=== PATIENT | female | born 1960 | race Caucasian/White ===

== ENCOUNTER 2016-07-10 11:09 | Emergency (ER) | payer BC ==
[2016-07-10 11:16] VITALS: BP 119/60
--- NOTE | 2016-07-10 11:55 | UC ---
Skin Complaint HPI - HPI Summary HPI Summary: The patient comes in today for: 1. Facial rash: Onset: Last night. Palliative/provocative: Quality: Itching, not painful, but "sore." Region: Face, cheeks, and the forehead. Severity: 3/10 Time: Constant. Associated symptoms: Event: No exposure to any irritating substances to the face. * - History of Current Complaint Chief Complaint: UCSkin Time Seen by Provider: 07/10/16 11:42 Stated Complaint: ALLERGIC REACTION Hx Obtained From: Patient Hx Last Menstrual Period: 2 weeks ago - Allergy/Home Medications Allergies/Adverse Reactions: Allergies Allergy/AdvReac Type Severity Reaction Status Date / Time Bee Venom Allergy Severe Swelling Verified 03/17/15 07:48 Of Face,Lips,& Throat Tetracyclines Allergy Severe Swelling Verified 03/17/15 07:48 Of Face,Lips,& Throat Ampicillin Allergy Unknown Unknown Verified 03/17/15 07:48 Reaction Details Penicillins Allergy Unknown Unknown Verified 03/17/15 07:48 Reaction Details Review of Systems Constitutional: Negative Skin: Rash Eyes: Negative ENT: Negative Respiratory: Negative Cardiovascular: Negative Gastrointestinal: Negative Genitourinary: Negative All Other Systems Reviewed And Are Negative: Yes PMH/Surg Hx/FS Hx/Imm Hx Previously Healthy: No - Family planning/BCP Other History Of: Negative For: HIV, Hepatitis B, Hepatitis C, Anticoagulant Therapy - Surgical History Surgical History: Yes Surgery Procedure, Year, and Place: "GERD surgery, basically they were fixing a hernia" - Family History Known Family History: Negative: Cardiac Disease, Hypertension - Social History Occupation: Employed Full-time Alcohol Use: None Substance Use Type: None Smoking Status (MU): Former Smoker - Immunization History Vaccination Up to Date: Yes Physical Exam Triage Information Reviewed: Yes Appearance: Well-Appearing, No Pain Distress, Well-Nourished Vital Signs: Initial Vital Signs Temp 98.2 F 07/10/16 11:15 Pulse 74 07/10/16 11:15 Resp 16 07/10/16 11:15 BP 119/60 07/10/16 11:15 Pulse Ox 100 07/10/16 11:15 Vital Signs Reviewed: Yes Eyes: Positive: Conjunctiva Clear. Negative: Discharge ENT: Positive: Hearing grossly normal. Negative: Pharyngeal erythema, Nasal congestion, TM bulging, TM dull, TM red, Tonsillar swelling, Tonsillar exudate Dental: Negative: Gross Decay/Caries @, Dental Fracture @ Neck: Positive: Supple, Nontender, No Lymphadenopathy. Negative: Nuchal Rigidity Respiratory: Positive: Lungs clear, No respiratory distress, No accessory muscle use. Negative: Crackles, Wheezing Cardiovascular: Positive: RRR, No Murmur Abdomen Description: Positive: Nontender, No Organomegaly, Soft. Negative: Distended, Guarding Musculoskeletal: Positive: Strength Intact, ROM Intact, No Edema Neurological: Positive: Alert, Muscle Tone Normal Psychological: Positive: Age Appropriate Behavior, Consolable Skin: Positive: rashes - She had a slight erythematous, papular/macular rash of the face (forehead, cheeks, chin and long the mandible bilatearlly. There was not rash around the eyes. Course/Dx - Course Course Of Treatment: Patent told that her appearance and history suggest ot me that she has a contact dermatitis and suggested that she try a steroid cream. She is to see her primary care provider later next week. - Differential Diagnoses - Skin Complaint Differential Diagnoses: Contact Dermatitis, Other - Rosaecea. - Diagnoses Provider Diagnoses: Contact dermatitis Discharge - Discharge Plan Condition: Stable Disposition: HOME Patient Education Materials: Contact Dermatitis (ED) Additional Instructions: Please see your primary care provider later next week to see how well you are doing. If you don't do well, you may need to be treated for rosacea. IF you are not able to be seen timely by your primary care provider later next week, please come back to see us.
== END 2016-07-10 12:24 | disposition home or self-care (01) ==
LOC: UCEAST 11:09
DX: L25.9 Unspecified contact dermatitis, unspecified cause (principal); L71.9 Rosacea, unspecified; Z87.891 Personal history of nicotine dependence
CPT/HCPCS: 99212; G0463

== ENCOUNTER 2017-10-04 15:20 | Emergency (ER) | payer BC ==
[2017-10-04 15:33] VITALS: BP 108/69
--- NOTE | 2017-10-04 16:06 | UC ---
Hand/Wrist HPI - HPI Summary HPI Summary: WOKE UP THIS MORNING WITH PAIN AND SWELLING LEFT WRIST DORSAL SURFACE. PAIN WITH MOVEMENT OF FINGERS AND WRIST. 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 SO HAS REPETITIVE MOTION BUT DENIES ANY DISCRETE TRAUMA. - History Of Current Complaint Chief Complaint: UCUpperExtremity Stated Complaint: HAND SWELLING Time Seen by Provider: 10/04/17 15:54 Hx Obtained From: Patient Hx Last Menstrual Period: 2 weeks ago Onset/Duration: Sudden Onset, Lasting Hours, Still Present Severity Initially: Moderate Severity Currently: Moderate Pain Intensity: 6 Pain Scale Used: 0-10 Numeric Character Of Pain: Aching Aggravating Factor(s): Movement Alleviating Factor(s): Rest Associated Signs And Symptoms: Positive: Swelling Related History: Dominant Hand Right - Allergies/Home Medications Allergies/Adverse Reactions: Allergies Allergy/AdvReac Type Severity Reaction Status Date / Time ampicillin Allergy Unknown Verified 10/04/17 15:34 Reaction Details bee venom protein (honey bee) Allergy Swelling Verified 10/04/17 15:34 Of Face,Lips,& Throat Penicillins Allergy Unknown Verified 10/04/17 15:34 Reaction Details Tetracyclines Allergy Swelling Verified 10/04/17 15:34 Of Face,Lips,& Throat Home Medications: Home Medications Pantoprazole TAB (NF) [Protonix TAB (NF)] 1 tab PO DAILY 10/04/17 [History Confirmed 10/04/17] PMH/Surg Hx/FS Hx/Imm Hx GI/ History: Ulcer Other History Of: Negative For: HIV, Hepatitis B, Hepatitis C, Anticoagulant Therapy - Surgical History Surgical History: Yes Surgery Procedure, Year, and Place: "GERD surgery, basically they were fixing a hernia" - Family History Known Family History: Negative: Cardiac Disease, Hypertension - Social History Alcohol Use: Occasionally Substance Use Type: None Smoking Status (MU): Former Smoker - Immunization History Vaccination Up to Date: Yes Review of Systems Constitutional: Negative Skin: Negative Respiratory: Negative Cardiovascular: Negative Gastrointestinal: Negative Musculoskeletal: Arthralgia, Decreased ROM, Edema All Other Systems Reviewed And Are Negative: Yes Physical Exam Triage Information Reviewed: Yes Appearance: Well-Appearing, No Pain Distress, Well-Nourished Vital Signs: Initial Vital Signs Temp 98.3 F 10/04/17 15:28 Pulse 85 10/04/17 15:28 Resp 18 08/29/18 15:28 BP 108/69 10/04/17 15:28 Pulse Ox 100 10/04/17 15:28 Vital Signs Reviewed: Yes Eyes: Positive: Conjunctiva Clear ENT: Positive: Hearing grossly normal Neck: Positive: Supple Respiratory: Positive: No respiratory distress, No accessory muscle use Cardiovascular: Positive: Pulses Normal Abdomen Description: Positive: Soft Musculoskeletal: Positive: ROM Limited @ - LEFT WRIST, Edema @ - LEFT WRIST DORSALLY, Other: - TTP LEFT DORSAL WRIST Neurological: Positive: Alert Psychological: Positive: Age Appropriate Behavior Skin: Negative: rashes Diagnostics - Radiology LEFT WRIST XRAY Xray Interpretation: Positive (See Comments) - Mild nonfocal soft tissue edema. Radiology Interpretation Completed By: Radiologist - EKG Cardiac Rhythm: Junctional: Normal Hand/Wrist Course/Dx - Course Course Of Treatment: XRAY NEGATIVE FOR FRACTURE. CONSIDER CONTUSION VS. SPRAIN VS. OVERUSE INJURY. FEELS BETTER WITH SPLINT. WEAR SPLINT AT NIGHT AND DURING THE DAY ABLE. REST, ICE, COMPRESS, ELEVATE. NOTE FOR WORK PROVIDED. F/U ORTHO IF NOT IMPROVING. TYLENOL #3 FOR PAIN. - Differential Dx/Diagnosis Provider Diagnoses: LEFT WRIST INJURY/SWELLING Discharge - Sign-Out/Discharge Documenting (check all that apply): Patient Departure All imaging exams completed and their final reports reviewed: Yes - Discharge Plan Condition: Stable Disposition: HOME Prescriptions: Acetaminop/Codeine 30 MG TAB* [Tylenol/Codeine 30 MG TAB*] 1 - 2 tab PO Q6H PRN #20 tab MDD 8 PRN Reason: Pain Patient Education Materials: Contusion in Adults (ED), Wrist Sprain (ED) Referrals: Seven Crenshaw MD [Medical Doctor] - 1 Week Page Manriquez MD [Primary Care Provider] - If Needed Additional Instructions: XRAY TODAY NEGATIVE FOR FRACTURE OR DISLOCATION BUT SHOWS SOFT TISSUE SWELLING. MAY BE DUE TO REPETITIVE MOTION/OVERUSE. RECOMMEND REST, ICE, COMPRESSION, ELEVATION. WEAR THE SPLINT AT NIGHT AND DURING THE DAY ABLE. FOLLOW-UP WITH ORTHO NEXT WEEK IF YOU ARE NOT IMPROVING. - Billing Disposition and Condition Condition: STABLE Disposition: Home
--- NOTE | 2017-10-04 16:29 | RAD ---
INDICATION: Dorsal LEFT wrist pain and swelling for one day without proceeding injury. Pain distal radius/scaphoid region. COMPARISON: No relevant prior exams available on the [facility] [place] PACS for comparison. TECHNIQUE: AP, lateral, and oblique views LEFT wrist. REPORT: Normal articular alignment. No significant arthropathic change evident. Suggestion of a normal variant os styloideum likely at the third carpometacarpal articulation based on the lateral view. Negative for fracture. Mild nonfocal soft tissue edema. IMPRESSION: #. Mild nonfocal soft tissue edema. #. No radiographic evidence for fracture or significant arthropathic change.
== END 2017-10-04 17:05 | disposition home or self-care (01) ==
LOC: UCEAST 15:20
DX: S69.92XA Unspecified injury of left wrist, hand and finger(s), initial encounter (principal); M25.432 Effusion, left wrist; Z88.0 Allergy status to penicillin; Z91.030 Bee allergy status; Z88.1 Allergy status to other antibiotic agents; Z87.891 Personal history of nicotine dependence; X58.XXXA Exposure to other specified factors, initial encounter; Y92.9 Unspecified place or not applicable
CPT/HCPCS: 99213; G0463

== ENCOUNTER 2018-02-16 07:15 | Emergency (ER) | payer BC, OTHER ==
[2018-02-16 07:27] VITALS: BP 125/72
[2018-02-16] MEDS ORDERED: Acetaminophen TAB* 325 MG PO ONE (07:40)
--- NOTE | 2018-02-16 07:41 | UC ---
Head Injury HPI - HPI Summary HPI Summary: The patient is a 57-year-old female that slipped and fell on an icy sidewalk this morning walking her dog. She struck the back of her head. She denies any loss of consciousness. According to her daughter she has been perseverating. He has nausea. She has mild occipital headache. She has moderate midline neck pain. Patient was placed in a Aaliyah collar upon arrival here. He complains of some mild right elbow pain. - History Of Current Complaint Chief Complaint: UCHeadInjury Stated Complaint: HEAD INJURY Time Seen by Provider: 02/16/18 07:21 Hx Obtained From: Patient Hx Last Menstrual Period: 2 weeks ago Onset/Duration: Sudden Onset Severity Currently: Moderate Severity Initially: Moderate Pain Intensity: 6 Pain Scale Used: 0-10 Numeric Character: Dull Aggravating Factor(s): Nothing Alleviating Factor(s): Nothing Associated Signs And Symptoms: Positive: Confusion, Neck Pain, Nausea. Negative : LOC (Time In Secs./Mins/Hrs), LOC Duration Unknown, Epistaxis, Dental Malocclusion, Vomiting Head: 1 - tender/skin intact 2 - pain - Allergies/Home Medications Allergies/Adverse Reactions: Allergies Allergy/AdvReac Type Severity Reaction Status Date / Time ampicillin Allergy Unknown Verified 02/16/18 07:27 Reaction Details bee venom protein (honey bee) Allergy Swelling Verified 02/16/18 07:27 Of Face,Lips,& Throat Penicillins Allergy Unknown Verified 02/16/18 07:27 Reaction Details Tetracyclines Allergy Swelling Verified 02/16/18 07:27 Of Face,Lips,& Throat PMH/Surg Hx/FS Hx/Imm Hx Previously Healthy: Yes GI/ History: Gastroesophageal Reflux, Ulcer - perforated Other History Of: Negative For: HIV, Hepatitis B, Hepatitis C, Anticoagulant Therapy - Surgical History Surgical History: Yes Surgery Procedure, Year, and Place: "GERD surgery, basically they were fixing a hernia" - Family History Known Family History: Negative: Cardiac Disease, Hypertension - Social History Alcohol Use: Weekly Substance Use Type: None Smoking Status (MU): Former Smoker - Immunization History Vaccination Up to Date: Yes Review of Systems All Other Systems Reviewed And Are Negative: Yes Constitutional: Positive: Negative Skin: Positive: Negative Eyes: Positive: Negative ENT: Positive: Negative Respiratory: Positive: Negative Cardiovascular: Positive: Negative Gastrointestinal: Positive: Negative Genitourinary: Positive: Negative Motor: Positive: Negative Neurovascular: Positive: Negative Musculoskeletal: Positive: Arthralgia - neck pain/right elbow pain Neurological: Positive: Headache Psychological: Positive: Negative Physical Exam Triage Information Reviewed: Yes Appearance: Well-Appearing, No Pain Distress, Well-Nourished Vital Signs: Initial Vital Signs Temp 97.6 F 02/16/18 07:22 Pulse 67 02/16/18 07:22 Resp 18 02/16/18 07:22 BP 125/72 02/16/18 07:22 Pulse Ox 99 02/16/18 07:22 Vital Signs Reviewed: Yes Eyes: Positive: Conjunctiva Clear, Other: - EOMI/PERRL, fundi -benign ENT: Positive: Hearing grossly normal, TMs normal, Uvula midline. Negative: Pharyngeal erythema, Nasal congestion, Nasal drainage, Tonsillar swelling, Tonsillar exudate, Trismus, Muffled voice, Hoarse voice, Sinus tenderness Dental Exam: Normal Neck: Positive: Other: - in collar Respiratory: Positive: Lungs clear, Normal breath sounds, No respiratory distress, No accessory muscle use Cardiovascular: Positive: RRR, No Murmur Musculoskeletal: Positive: ROM Intact - right elbow FROM, No Edema - right elbow , Other: - decrease ROM both shoulders (chronic) Neurological: Positive: Alert - poor recall, GCS15/15, (-) Rhomberg, no ataxia, normal gait, cn2-12 intact Psychological Exam: Normal Skin Exam: Normal Diagnostics - Radiology No standard instances Radiology Interpretation Completed By: Radiologist Summary of Radiographic Findings: CT brain (-), c-spine DDD/DJD Re-Evaluation - Re-Evaluation First Eval Re-Evaluation Time: 08:48 Change: Improved - elbow/head and neck all improved Head Injury Course/Dx - Differential Dx/Diagnosis Provider Diagnosis: Concussion without loss of consciousness, Cervical strain, Contusion of elbow, right Discharge - Sign-Out/Discharge Documenting (check all that apply): Patient Departure All imaging exams completed and their final reports reviewed: Yes - Discharge Plan Condition: Stable Disposition: HOME Patient Education Materials: Cervical Strain (ED), Concussion (ED) Forms: *Work Release Referrals: Page Manriquez MD [Primary Care Provider] - As Soon As Possible (recheck next week) Additional Instructions: rest (both physical and mental) tylenol - Billing Disposition and Condition Condition: STABLE Disposition: Home
== END 2018-02-16 09:06 | disposition home or self-care (01) ==
LOC: UCEAST 07:15
DX: S06.0X0A Concussion without loss of consciousness, initial encounter (principal); S16.1XXA Strain of muscle, fascia and tendon at neck level, initial encounter; S50.01XA Contusion of right elbow, initial encounter; W00.0XXA Fall on same level due to ice and snow, initial encounter; Y93.K1 Activity, walking an animal; Y92.480 Sidewalk as the place of occurrence of the external cause; Z88.0 Allergy status to penicillin; Z88.1 Allergy status to other antibiotic agents; Z91.030 Bee allergy status; Z87.891 Personal history of nicotine dependence
CPT/HCPCS: 70450; 72125; 99213; A9270-GY; G0463